=== PATIENT | female | born 1970 | race Native Hawaiian/Other Pacific Islander ===

== ENCOUNTER 2022-09-06 11:16 | Emergency (ER) | payer BC ==
[~2022-09-06] VITALS: Ht 167.6 cm; Wt 103.0 kg
[2022-09-06 11:19] VITALS: BP 122/81
--- NOTE | 2022-09-06 11:31 | NUR ---
Patient ambulated to bed 1 with steady gait.
--- NOTE | 2022-09-06 11:42 | NUR ---
PA Juárez evaluating patient at bedside.
[2022-09-06] MEDS ORDERED: NACL 0.9% 1,000 ML IV ONE (12:05)
--- NOTE | 2022-09-06 12:12 | NUR ---
IV started, blood work obtained. Handed to CPT at bedside.
[2022-09-06 12:24] LABS: BASOPHILS # (AUTO) 0.1 K/uL (0.00-0.22); EOSINOPHILS # (AUTO) 0.3 K/uL (0-0.4); EOSINOPHILS % (AUTO) 3.8 % (0.0-4.0); HEMATOCRIT 40.7 % (36-48); HEMOGLOBIN 13.9 g/dL (12.0-16.0); LYMPHOCYTES # (AUTO) 2.1 K/uL (2.5-16.5); LYMPHOCYTES % (AUTO) 27.8 % (20.5-51.1); MEAN CORPUSCULAR HEMOGLOBIN 30 pg (27-31); MEAN CORPUSCULAR HGB CONC 34 g/dL (33-37); MEAN CORPUSCULAR VOLUME 87.5 fL (80-94); MONOCYTES # (AUTO) 0.8 K/uL (0.8-1.0); MONOCYTES % (AUTO) 10.5 % (1.7-9.3); NEUTROPHILS # (AUTO) 4.4 K/uL (1.8-7.7); NEUTROPHILS % (AUTO) 56.9 % (42.2-75.2); PLATELET COUNT (AUTO) 366 K/uL (140-450); RED BLOOD CELL COUNT(AUTO) 4.65 MIL/uL (4.20-5.40); RED CELL DISTRIBUTION WIDTH 13.2 % (11.6-13.7); WHITE BLOOD COUNT (AUTO) 7.7 K/uL (4.8-10.8)
[2022-09-06 12:43] LABS: ANION GAP 10.3 (8-16); CARBON DIOXIDE 28.9 mmol/L (21-32); CREATININE 0.8 mg/dL (0.6-1.3); POTASSIUM 3.2 mmol/L (3.5-5.1)
[2022-09-06] MEDS ORDERED: NITR-141 PO ×2 (13:57→14:12)
[2022-09-06] MEDS ORDERED: IBUP-2213 PO ×2 (13:57→14:12)
[2022-09-06] MEDS ORDERED: CEPH-588 PO (13:57)
[2022-09-06 14:16] VITALS: BP 122/72
--- NOTE | 2022-09-06 14:39 | NUR ---
Patient discharged with v/s stable. Written and verbal after care instructions given and explained. Patient alert, oriented and verbalized understanding of instructions. Ambulatory with steady gait. All questions addressed prior to discharge. ID band removed. Patient advised to follow up with PMD. Rx of keflex, macrodantin given. Patient educated on indication of medication including possible reaction and side effects. Opportunity to ask questions provided and answered.
--- NOTE | 2022-09-08 14:59 | NUR ---
LATE ENTRY. RECEIVED POSITIVE URINE CULTURE. FORM GIVEN TO . TX APPROPRIATE. FORM PLACED IN BINDER.
== END 2022-09-06 14:16 | disposition home or self-care (01) ==
LOC: MED 11:16
DX: B34.9 Viral infection, unspecified (principal); N39.0 Urinary tract infection, site not specified; M79.7 Fibromyalgia
CPT/HCPCS: 36415; 71045; 80048; 81002; 81025; 85025; 87086; 96360; 99284; Q0092; J7030

== ENCOUNTER 2022-09-25 09:27 | Inpatient (IN) | payer BC ==
[~2022-09-25] VITALS: Ht 167.6 cm; Wt 107.5 kg
[~2022-09-25 09:27] MED LIST: IBUP-2213 PO; NITR-141 PO
[2022-09-25] MEDS ORDERED: diphenhydrAMINE 50 MG/ML VIAL IVP ONE (09:35)
[2022-09-25] MEDS ORDERED: methylPREDNISolone SS 125 MG/2 ML VIAL IVP ONE (09:35)
[2022-09-25] MEDS ORDERED: EPINEPHrine 1 MG/ML AMP IM ONE ×2 (09:35→12:40)
[2022-09-25] MEDS ORDERED: NACL 0.9% 1,000 ML IV ONE ×4 (09:35→12:40)
--- NOTE | 2022-09-25 09:35 | NUR ---
RECEIVED CALL FROM ER WINDOW AIR CONDITIONER INSTALLER, STATED PATIENT FELL/POSSIBLE SYNCOPE. FOUND PATIENT AWAKE SITTING UP ON GROUND, DENIES HEAD OR NECK INJURY. PATIENT ASSISTED INTO W/C AND TAKEN TO ED BED 9. ERMD AND PRIMARY NURSE MADE AWARE.
[2022-09-25 09:42] VITALS: BP 80/56
--- NOTE | 2022-09-25 09:50 | NUR ---
WHEELCHAIR ASSISTED TO ED C/O RASH ALL OVER BODY ACCOMPANIED BY THROAT TIGHTNESS AND DIFFICULTY BREATHING ONSET TODAY. PT STATES LAST FOOD INTAKE WAS YESTERDAY BUT DENIES ANY ALLERGIES TO FOOD. ON ROOM AIR, SATTING 96%. PMH: FIBROMYALGIA, HYPOTHYROIDISM NKA
--- NOTE | 2022-09-25 09:55 | NUR ---
IV ESTABLISHED TO LEFT AC WITH 20G. XR DONE AT BEDSIDE
--- NOTE | 2022-09-25 09:55 | NUR ---
BP 83/50 AT BEDSIDE. ERMD AWARE. WILL CARRY OUT ORDER
--- NOTE | 2022-09-25 10:00 | NUR ---
EKG DONE AT BEDSIDE BY DIRECTOR OF SPA AND GUEST EXPERIENCE
--- NOTE | 2022-09-25 10:01 | NUR ---
PT PLACED ON NC WITH 4L. O2 @ 97%
--- NOTE | 2022-09-25 10:07 | NUR ---
GENERAL SUPERVISOR AT BEDSIDE FOR BLOOD DRAW
--- NOTE | 2022-09-25 10:21 | NUR ---
SPOKE WITH PER PT'S REQUEST. PER , PT HAD ONE EPISODE OF SYNCOPAL EPISODE AT HOME IN THE RESTROOM AND A SECOND SYNCOPAL EPISODE IN THE TURRET PUNCH OPERATOR OF ED PRIOR TO TRIAGE. EMRD MADE AWARE
[2022-09-25 10:30] LABS: BASOPHILS % (AUTO) 0.2 % (0.0-2.0); EOSINOPHILS % (AUTO) 0.1 % (0.0-4.0); HEMATOCRIT 49.8 % (36-48); HEMOGLOBIN 16.6 g/dL (12.0-16.0); LYMPHOCYTES # (AUTO) 1.7 K/uL (2.5-16.5); LYMPHOCYTES % (AUTO) 15.2 % (20.5-51.1); MEAN CORPUSCULAR HEMOGLOBIN 30 pg (27-31); MEAN CORPUSCULAR HGB CONC 33 g/dL (33-37); MEAN CORPUSCULAR VOLUME 89.1 fL (80-94); MONOCYTES # (AUTO) 0.6 K/uL (0.8-1.0); MONOCYTES % (AUTO) 5.9 % (1.7-9.3); NEUTROPHILS # (AUTO) 8.6 K/uL (1.8-7.7); NEUTROPHILS % (AUTO) 78.6 % (42.2-75.2); PLATELET COUNT (AUTO) 316 K/uL (140-450); RED BLOOD CELL COUNT(AUTO) 5.59 MIL/uL (4.20-5.40); RED CELL DISTRIBUTION WIDTH 14.3 % (11.6-13.7); WHITE BLOOD COUNT (AUTO) 10.9 K/uL (4.8-10.8)
[2022-09-25 11:18] LABS: CARBON DIOXIDE 21.1 mmol/L (21-32); CREATININE 2.2 mg/dL (0.6-1.3)
[2022-09-25] MEDS ORDERED: DULO30EC PO (11:33)
[2022-09-25] MEDS ORDERED: LEVO0.3T5 PO (11:33)
[2022-09-25] MEDS ORDERED: GABA400C PO (11:33)
[2022-09-25 11:40] LABS: ANION GAP 17.1 (8-16); POTASSIUM 4.2 mmol/L (3.5-5.1)
--- NOTE | 2022-09-25 11:55 | NUR ---
PT AMBULATED TO RESTROOM FOR URINE COLLECTION
--- NOTE | 2022-09-25 12:05 | NUR ---
PT BACK IN BED. URINE COLLECTED
[2022-09-25 12:33] LABS: APPEARANCE,URINE SL CLOUDY (CLEAR); BILIRUBIN,URINE 1+ (NEGATIVE); BLOOD, URINE TRACE-I (NEGATIVE); COLOR,URINE DARK YELLOW (YELLOW); LEUKOCYTE ESTERASE ,URINE 1+ (NEGATIVE); NITRITE, URINE NEGATIVE (NEGATIVE); UGLUCOSE NEGATIVE (NEGATIVE)
[2022-09-25] MEDS ORDERED: EPINEPHrine 1 MG/ML AMP ONE (12:40)
[2022-09-25] MEDS ORDERED: LIDOCAINE MPF 1% 0 ML ONE (13:05)
--- NOTE | 2022-09-25 13:18 | NUR ---
DR JOHNSON AT BEDSIDE FOR CENTRAL LINE PLACEMENT
[2022-09-25] MEDS ORDERED: ACETAMINOPHEN 325 MG TAB PO PRN ×2 (13:25→16:10)
[2022-09-25] MEDS ORDERED: LORazepam 1 MG TAB PO PRN (13:25)
[2022-09-25] MEDS ORDERED: HYDROcodone/APAP 5/325 MG 1 TAB TAB PO PRN (13:25)
[2022-09-25] MEDS ORDERED: ONDANSETRON 4 MG/2 ML VIAL IVP PRN ×2 (13:25→16:10)
[2022-09-25 13:27] LABS: RBC,URINE 0-5 /HPF (0-5); TRICHOMONAS,URINE None Seen /HPF (None Seen); WBC,URINE 20-60 /HPF (0-5); YEAST,URINE None Seen /HPF (None Seen)
[2022-09-25 13:28] LABS: FINE GRANULAR CASTS,URINE 0-10 /LPF (None Seen)
[2022-09-25] MEDS ORDERED: EPINEPHrine 1 MG/ML AMP IM PRN (13:30)
--- NOTE | 2022-09-25 13:50 | NUR ---
Patient will be admitted to care of DR RIVERA. Admited to ICU. Will go to room 2. Belongings list completed. Report to EDITA CASANOVA.
--- NOTE | 2022-09-25 14:00 | NUR ---
RECEIVED BEDSIDE REPORT FROM ER STEPHON RN. PT A&O X4, AWAKE. ROOM AIR, O2 SATS 97%, BP 110/85, PULSE 76, RR 24, TEMP 98.4. SR ON MONITOR. SKIN INTACT. CONTINENT. LAST BM 09/22/22. IV TO LT AC 20G, SALINE LOCK. RT IJ TLC LOCKED. MILD WEAKNESS, BEDREST. RASH ALL OVER THE BODY, ITCHY. CALL LIGHT WITHIN REACH, WILL CONTINUE TO MONITOR.
--- NOTE | 2022-09-25 14:08 | NUR ---
Note avtarcliff in EDM - 09/25/22 at 1413 by [email or web address] PT REQUESTED TO LEAVE STATING HE HAS TO ATTEND A WEDDING. PT INSISTED SOME LAB RESULTS ARE PENDING AND ADVISED TO STAY, EXPLAINING RISK OF LEAVING BY BOTH PRIMARY RN AND ERMD. PT INSISTED HE NEEDS TO LEAVE. UPON LEAVING, PT ADVISED SOME LAB RESULTS CAME BACK CRITICAL AND NEEDS FURTHER EVALUATION. PT INSISTED HE NEEDS TO LEAVE FOR THE WEDDING AND STATED HE WILL COME BACK TOMORROW. PT LEFT AMBULATING IN STEADY GAIT AND STABLE VITALS. PT STATES NAUSEA AND VOMITING HAS STOPPED AND FEELS CONDITION IMPROVED.
[2022-09-25] MEDS: LACTATED RINGERS 1,000 ML IV SCH (14:12)
[2022-09-25 14:35] VITALS: BP 108/67
[2022-09-25] MEDS ORDERED: diphenhydrAMINE 50 MG/ML VIAL ONE (15:19)
--- NOTE | 2022-09-25 15:20 | NUR ---
PT REPORTED WORSENING RASH AND ITCHY, TIGHT THROAT. CALL DR RIVERA, WAIT FOR CALL BACK. OVERRIDE BENADRYL 25 MG PO, NOT GIVEN, WASTED. GIVEN BENADRYL IVP 25MG.
[2022-09-25 16:00] VITALS: BP 124/73
[2022-09-25] MEDS ORDERED: ACETAMINOPHEN 650 MG SUPP RC PRN (16:10)
--- NOTE | 2022-09-25 16:20 | NUR ---
DR THUY LINDSAY AT BEDSIDE. UPDATED PT INFORMATION. ORDERED MEDICATIONS AND DOWNGRADE PT TO TELE STATUS.
--- NOTE | 2022-09-25 19:25 | NUR ---
ENDORSED TO ARM MAKER VAN RN FOR CONTINUITY OF CARE.
--- NOTE | 2022-09-25 19:46 | NUR ---
PT A&O X4 AND ABLE TO MAKE NEEDS KNOWN. PT CAME IN FOR SOB AND RASH. VS WNR AT THIS TIME. PT ON ROOM AIR. NO S/SX OF SOB. PT ON CARDIAC DIET. ACTIVE BOWEL SOUNDS. RIJ TRIPLE LUMEN CATHETER. LEFT AC 20 GAUGE. LR RUNNING AT 80 ML/HR. SKIN IS INTACT. NO COMPLAINTS MADE AT THIS TIME.
[2022-09-25 20:00] VITALS: BP 113/61
[2022-09-25] MEDS: methylPREDNISolone SS 125 MG/2 ML VIAL IVP SCH (20:11)
[2022-09-25] MEDS: diphenhydrAMINE 50 MG/ML VIAL IVP PRN (20:15)
--- NOTE | 2022-09-25 23:16 | NUR ---
AT BEDSIDE. PT DENIES ASSISTANCE OR NEEDS AT THIS TIME.
[2022-09-26] VITALS: BP 118/69
[2022-09-26] MEDS: diphenhydrAMINE 50 MG/ML VIAL IVP PRN ×2 (00:22→05:44)
--- NOTE | 2022-09-26 01:00 | NUR ---
PT ABLE TO VOID INDEPENDENTLY. DENIES C/O PAIN.
[2022-09-26] MEDS: LACTATED RINGERS 1,000 ML IV SCH (02:33)
[2022-09-26 04:00] VITALS: BP 120/60
--- NOTE | 2022-09-26 05:30 | NUR ---
AM MEDS GIVEN. PRN BENADRYL GIVEN REQUESTED.
[2022-09-26] MEDS: methylPREDNISolone SS 125 MG/2 ML VIAL IVP SCH ×2 (05:32→12:53)
[2022-09-26 05:56] LABS: BASOPHILS % (AUTO) 0.1 % (0.0-2.0); LYMPHOCYTES # (AUTO) 1.8 K/uL (2.5-16.5); LYMPHOCYTES % (AUTO) 15.1 % (20.5-51.1); MEAN CORPUSCULAR HEMOGLOBIN 29 pg (27-31); MEAN CORPUSCULAR HGB CONC 33 g/dL (33-37); MEAN CORPUSCULAR VOLUME 87.9 fL (80-94); MONOCYTES # (AUTO) 0.6 K/uL (0.8-1.0); MONOCYTES % (AUTO) 4.9 % (1.7-9.3); NEUTROPHILS # (AUTO) 9.5 K/uL (1.8-7.7); NEUTROPHILS % (AUTO) 79.9 % (42.2-75.2); PLATELET COUNT (AUTO) 248 K/uL (140-450); RED BLOOD CELL COUNT(AUTO) 4.43 MIL/uL (4.20-5.40)
[2022-09-26] MEDS ORDERED: LEVOTHYROXINE 0.1 MG TAB PO SCH (06:30)
[2022-09-26 06:36] LABS: ALBUMIN 2.7 g/dL (3.4-5.0); CARBON DIOXIDE 22.4 mmol/L (21-32); CREATININE 0.8 mg/dL (0.6-1.3); MAGNESIUM 1.8 mg/dL (1.8-2.4); PHOSPHORUS 2.1 mg/dL (2.5-4.9); TOTAL BILIRUBIN 0.2 mg/dL (0.0-1.0)
--- NOTE | 2022-09-26 07:15 | NUR ---
RECEIVED BEDSIDE REPORT FROM CABLE FERRYBOAT OPERATOR VAN RN. PT A&O X4, AWAKE. ROOM AIR. SR ON MONITOR. SKIN INTACT. CONTINENT. LAST BM 09/22/22. IV TO LT AC 20G, SALINE LOCK. RT IJ TLC LOCKED. MILD WEAKNESS, BEDREST. RASH ALL OVER THE BODY, ITCHY. LAST BENADRYL 25MG IVP PRN Q4H GIVEN AT 0544. CALL LIGHT WITHIN REACH, WILL CONTINUE TO MONITOR.
--- NOTE | 2022-09-26 07:16 | NUR ---
ENDORSED TO AM SHIFT JOCELYNE MOYER.
[2022-09-26 07:25] LABS: ANION GAP 12.4 (8-16); POTASSIUM 3.8 mmol/L (3.5-5.1)
[2022-09-26 08:00] VITALS: BP 114/59
--- NOTE | 2022-09-26 08:20 | NUR ---
FAMILY/ AT BEDSIDE. UPDATED PT INFORMATION. ALL QUESTIONS ANSWERED.
[2022-09-26] MEDS ORDERED: DOCUSATE SODIUM 100 MG GELCAP PO SCH (09:00)
[2022-09-26] MEDS ORDERED: ENOXAPARIN 40 MG/0.4 ML SYR SUBQ SCH (09:00)
--- NOTE | 2022-09-26 09:39 | NUR ---
PATIENT HAS BEEN SCREENED AND CATEGORIZED MODERATE NUTRITION RISK. PATIENT WILL BE SEEN WITHIN 3-5 DAYS OF ADMISSION. 09/25/22-09/30/[address]
--- NOTE | 2022-09-26 11:07 | NUR ---
PT RELAXED, LYING IN THE BED. NO TIGHT THROAT, ITCHY, RASH REPORTED. VS STABLE.
[2022-09-26 12:00] VITALS: BP 106/75
[2022-09-26] MEDS ORDERED: EPIN1KIT31 IM (12:22)
[2022-09-26] MEDS ORDERED: DIPH25TA53 PO (12:22)
--- NOTE | 2022-09-26 12:25 | NUR ---
SEEN AND EXAMINED BY DR RIVERA. ORDER TO DISCHARGE PATIENT.
[2022-09-26 15:28] VITALS: BP 107/65
--- NOTE | 2022-09-26 16:55 | NUR ---
PT DISCHARGED FROM ICU VIA WHEELCHAIR TO FRONT OF MAIN ENTRANCE TO PRIVATE VEHICLE, WAITED BY THE VEHICLE. PT VS STABLE, NO S/S OF ACUTE RESPIRATORY DISTRESS.
== END 2022-09-26 16:30 | disposition home or self-care (01) | DRG 916 ==
LOC: MED 09:27 → MIC 13:29
PROVIDERS: ADMIT Hospitalist; ATTEND Hospitalist
PROC: 02HV33Z Insertion of Infusion Device into Superior Vena Cava, Percutaneous Approach (ICD-10-PCS; principal; 2022-09-25)
PROC: B548ZZA Ultrasonography of Superior Vena Cava, Guidance (ICD-10-PCS; 2022-09-25)
DX: T78.2XXA Anaphylactic shock, unspecified, initial encounter (principal); N17.9 Acute kidney failure, unspecified; E86.0 Dehydration; Z20.822 Contact with and (suspected) exposure to COVID-19; F32.A Depression, unspecified; F41.9 Anxiety disorder, unspecified; E03.9 Hypothyroidism, unspecified; M79.7 Fibromyalgia; R55 Syncope and collapse
CPT/HCPCS: 36415; 71045; 76770; 80048; 80053; 81001; 83735; 84100; 84443; 85025; 87081; 87086; 93005; 96361; 96374; 96375; 99285; J0171; J1200; J1650; J2001; J2930; Q0092; Q0163

== ENCOUNTER 2022-09-28 19:32 | Emergency (ER) | payer BC ==
[~2022-09-28] VITALS: Ht 167.6 cm; Wt 104.3 kg
[~2022-09-28 19:32] MED LIST changes: +DIPH25TA53 PO; +DULO30EC PO; +EPIN1KIT31 IM; +GABA400C PO; +LEVO0.3T5 PO; -NITR-141 PO
[2022-09-28 19:46] VITALS: BP 150/73
--- NOTE | 2022-09-28 19:46 | NUR ---
PT TAKEN TO BED 12
[2022-09-28] MEDS ORDERED: MORPHINE SULFATE 4 MG/ML SYR IVP ONE (20:20)
[2022-09-28] MEDS ORDERED: ONDANSETRON 4 MG/2 ML VIAL IVP ONE (20:20)
[2022-09-28 20:33] LABS: BASOPHILS % (AUTO) 0.2 % (0.0-2.0); EOSINOPHILS # (AUTO) 0.1 K/uL (0-0.4); EOSINOPHILS % (AUTO) 0.8 % (0.0-4.0); HEMOGLOBIN 13.7 g/dL (12.0-16.0); LYMPHOCYTES # (AUTO) 1.5 K/uL (2.5-16.5); LYMPHOCYTES % (AUTO) 13.8 % (20.5-51.1); MEAN CORPUSCULAR HEMOGLOBIN 30 pg (27-31); MEAN CORPUSCULAR HGB CONC 34 g/dL (33-37); MEAN CORPUSCULAR VOLUME 86.6 fL (80-94); MONOCYTES % (AUTO) 9.3 % (1.7-9.3); NEUTROPHILS # (AUTO) 8.3 K/uL (1.8-7.7); NEUTROPHILS % (AUTO) 75.9 % (42.2-75.2); PLATELET COUNT (AUTO) 240 K/uL (140-450); RED BLOOD CELL COUNT(AUTO) 4.62 MIL/uL (4.20-5.40); RED CELL DISTRIBUTION WIDTH 13.4 % (11.6-13.7); WHITE BLOOD COUNT (AUTO) 10.9 K/uL (4.8-10.8)
[2022-09-28 20:53] LABS: ALBUMIN 3.2 g/dL (3.4-5.0); ANION GAP 8.3 (8-16); CARBON DIOXIDE 31.9 mmol/L (21-32); CREATININE 0.8 mg/dL (0.6-1.3); POTASSIUM 4.2 mmol/L (3.5-5.1); TOTAL BILIRUBIN 0.4 mg/dL (0.0-1.0)
--- NOTE | 2022-09-28 21:10 | NUR ---
PT TAKEN TO CT
[2022-09-28 21:58] LABS: APPEARANCE,URINE CLEAR (CLEAR); BILIRUBIN,URINE NEGATIVE (NEGATIVE); BLOOD, URINE TRACE-I (NEGATIVE); COLOR,URINE YELLOW (YELLOW); LEUKOCYTE ESTERASE ,URINE NEGATIVE (NEGATIVE); NITRITE, URINE NEGATIVE (NEGATIVE); UGLUCOSE NEGATIVE (NEGATIVE)
[2022-09-28] MEDS ORDERED: KETOROLAC 15 MG/ML VIAL IVP ONE (22:05)
[2022-09-28 22:15] LABS: WBC,URINE 0-5 /HPF (0-5)
[2022-09-28] MEDS ORDERED: LEVO750T75 PO (22:43)
[2022-09-28 23:02] VITALS: BP 115/68
--- NOTE | 2022-09-28 23:03 | NUR ---
Patient discharged with v/s stable. Written and verbal after care instructions given and explained. Patient alert, oriented and verbalized understanding of instructions. Ambulatory with steady gait. All questions addressed prior to discharge. ID band removed. Patient advised to follow up with PMD. Rx of levofloxacin given. Patient educated on indication of medication including possible reaction and side effects. Opportunity to ask questions provided and answered.
== END 2022-09-28 23:03 | disposition home or self-care (01) ==
LOC: MED 19:32
DX: N12 Tubulo-interstitial nephritis, not specified as acute or chronic (principal); R11.0 Nausea; E03.9 Hypothyroidism, unspecified; Z90.49 Acquired absence of other specified parts of digestive tract; Z79.899 Other long term (current) drug therapy; Z90.710 Acquired absence of both cervix and uterus; Z98.890 Other specified postprocedural states
CPT/HCPCS: 36415; 74177; 80053; 81001; 81025; 83690; 85025; 87086; 96374; 96375; 99285; J1885; J2270; J2405; Q9967

== ENCOUNTER 2022-09-29 18:28 | Inpatient (IN) | payer BC ==
[~2022-09-29] VITALS: Ht 167.6 cm; Wt 104.3 kg
[~2022-09-29 18:28] MED LIST changes: +LEVO750T75 PO
[2022-09-29 18:40] VITALS: BP 87/63
[2022-09-29] MEDS ORDERED: methylPREDNISolone SS 125 MG/2 ML VIAL IVP ONE (18:50)
[2022-09-29] MEDS ORDERED: NACL 0.9% 1,000 ML IV ONE ×3 (18:50→20:55)
--- NOTE | 2022-09-29 19:00 | NUR ---
52/F BIBA FROM HOME C/O RASH AND SOB ONSET 10 MIN. PT STATES TAKING FIRST DOSE OF LEVOFLOXACINE TODAY PRIOR TO ONSET OF S/SX. PT STATES SELF-ADMINISTERING EPI-PEN AND 25MG BENADRYL IV ADMINISTERED BY EMS MACHINE TANK OPERATOR. PT WAS DC LAST NIGHT FOR PYELONEPHRITIS DX. PT WAS DC 09/26/22 FOR ANAPHYLACTIC SHOCK. ON ROOM AIR SATTING 96%, APPEARS HYPOTENSIVE AT BEDSIDE AND ERMD AWARE. AAO4, IV ESTABLISHED BY EMS MACHINE TANK OPERATOR TO LEFT AC WITH 20G. PMH: HYPOTHYROID
[2022-09-29] MEDS ORDERED: NACL 0.9% 2,000 ML IV ONE (19:05)
[2022-09-29] MEDS ORDERED: PIPERACILLIN/TAZOBACTAM 3.375 GM in DEXTROSE 5% 50 ML IV ONE (19:05)
--- NOTE | 2022-09-29 19:06 | NUR ---
PT CURRENTLY DENIES ANY SOB AT THIS TIME. RASH NOTED TO ABDOMEN.
[2022-09-29] MEDS ORDERED: PIPERACILLIN/TAZOBACTAM 3.375 GM VIAL IV ONE (19:08)
--- NOTE | 2022-09-29 19:15 | NUR ---
XR AT BEDSIDE
[2022-09-29 19:20] LABS: HEMATOCRIT 49.1 % (36-48); HEMOGLOBIN 16.3 g/dL (12.0-16.0); MEAN CORPUSCULAR HEMOGLOBIN 29 pg (27-31); MEAN CORPUSCULAR HGB CONC 33 g/dL (33-37); MEAN CORPUSCULAR VOLUME 88.5 fL (80-94); PLATELET COUNT (AUTO) 239 K/uL (140-450); RED BLOOD CELL COUNT(AUTO) 5.55 MIL/uL (4.20-5.40); RED CELL DISTRIBUTION WIDTH 14.1 % (11.6-13.7); WHITE BLOOD COUNT (AUTO) 21.4 K/uL (4.8-10.8)
[2022-09-29 19:33] LABS: ANION GAP 9.1 (8-16); CARBON DIOXIDE 29.6 mmol/L (21-32); CREATININE 1.4 mg/dL (0.6-1.3); POTASSIUM 3.7 mmol/L (3.5-5.1)
[2022-09-29] MEDS ORDERED: EPINEPHrine 1 MG/ML AMP IM ONE ×2 (19:35→21:35)
--- NOTE | 2022-09-29 19:37 | NUR ---
HANDOFF REPORT GIVEN TO SHOAIB CASANOVA.
[2022-09-29 19:41] LABS: LYMPHOCYTES % (MANUAL) 4 % (20-46); MONOCYTES % (MANUAL) 3 % (5-12)
--- NOTE | 2022-09-29 20:15 | NUR ---
SON CHRYSTAL VANCE CALLED REQUESTING UPDATE AN ADMISSION [phone]
[2022-09-29] MEDS ORDERED: NOREPINEPHRINE 4 MG in DEXTROSE 5% 250 ML IV ONE ×2 (20:20→21:00)
[2022-09-29] MEDS ORDERED: NOREPINEPHRINE 4 MG/4 ML VIAL IV ONE (20:30)
[2022-09-29] MEDS ORDERED: EPINEPHrine 1 MG/ML AMP IM PRN (21:00)
--- NOTE | 2022-09-29 21:04 | NUR ---
RAPID COVID SPECIMEN TAKEN TO LAB
[2022-09-29] MEDS ORDERED: POTASSIUM CHLORIDE 10 MEQ TABER PO PRN (21:05)
[2022-09-29] MEDS ORDERED: ZOLPIDEM 10 MG TAB PO PRN (21:05)
[2022-09-29] MEDS ORDERED: ACETAMINOPHEN 325 MG TAB PO PRN (21:05)
[2022-09-29] MEDS ORDERED: DOCUSATE SODIUM 100 MG GELCAP PO PRN (21:05)
[2022-09-29] MEDS ORDERED: ONDANSETRON 4 MG/2 ML VIAL IVP PRN (21:05)
[2022-09-29] MEDS ORDERED: LORazepam 2 MG/ML VIAL IVP PRN (21:05)
[2022-09-29] MEDS ORDERED: MAG SULF 2000 MG/WATER PREMIX 50 ML IV PRN (21:05)
[2022-09-29] MEDS: NACL 0.9% 1,000 ML IV SCH (21:52)
[2022-09-29 22:12] LABS: APPEARANCE,URINE CLEAR (CLEAR); BILIRUBIN,URINE NEGATIVE (NEGATIVE); BLOOD, URINE NEGATIVE (NEGATIVE); COLOR,URINE YELLOW (YELLOW); LEUKOCYTE ESTERASE ,URINE NEGATIVE (NEGATIVE); NITRITE, URINE NEGATIVE (NEGATIVE); UGLUCOSE NEGATIVE (NEGATIVE)
[2022-09-29 22:17] VITALS: BP 90/55
[2022-09-29 22:30] VITALS: BP 90/55
[2022-09-29 22:45] VITALS: BP 122/71
[2022-09-29 23:00] VITALS: BP 114/63
[2022-09-29] MEDS ORDERED: PNEUMOCOCCAL VACCINE 23 MCG/0.5 ML VIAL IMVAC SCH (23:35)
[2022-09-30] VITALS (15 sets, daily range): BP systolic 97–137; BP diastolic 52–87
[2022-09-30] MEDS: NACL 0.9% 1,000 ML IV SCH ×2 (01:25→14:51)
[2022-09-30] MEDS ORDERED: PIPERACILLIN/TAZOBACTAM 3.375 GM VIAL IV ONE ×2 (01:30→06:30)
[2022-09-30] MEDS: PIPERACILLIN/TAZOBACTAM 3.375 GM in DEXTROSE 5% 50 ML IV SCH ×4 (01:38→17:08)
[2022-09-30] MEDS ORDERED: NOREPINEPHRINE 4 MG/4 ML VIAL IV ONE (04:37)
[2022-09-30] MEDS ORDERED: diphenhydrAMINE 50 MG/ML VIAL ONE (04:49)
[2022-09-30] MEDS ORDERED: EPINEPHrine 1 MG/ML AMP IM PRN (04:50)
[2022-09-30] MEDS ORDERED: HYDROCORTISONE NA SUCC 100 MG/2 ML VIAL IV SCH (05:00)
[2022-09-30] MEDS ORDERED: methylPREDNISolone SS 40 MG in WATER STERILE 1 ML IV SCH (05:00)
[2022-09-30 06:24] LABS: BASOPHILS % (AUTO) 0.1 % (0.0-2.0); EOSINOPHILS % (AUTO) 0.1 % (0.0-4.0); HEMOGLOBIN 16.5 g/dL (12.0-16.0); LYMPHOCYTES # (AUTO) 1.9 K/uL (2.5-16.5); LYMPHOCYTES % (AUTO) 13.3 % (20.5-51.1); MEAN CORPUSCULAR HEMOGLOBIN 29 pg (27-31); MEAN CORPUSCULAR HGB CONC 34 g/dL (33-37); MEAN CORPUSCULAR VOLUME 87.4 fL (80-94); MONOCYTES # (AUTO) 0.4 K/uL (0.8-1.0); MONOCYTES % (AUTO) 2.6 % (1.7-9.3); NEUTROPHILS # (AUTO) 11.7 K/uL (1.8-7.7); NEUTROPHILS % (AUTO) 83.9 % (42.2-75.2); PLATELET COUNT (AUTO) 195 K/uL (140-450); RED BLOOD CELL COUNT(AUTO) 5.61 MIL/uL (4.20-5.40); RED CELL DISTRIBUTION WIDTH 14.1 % (11.6-13.7)
[2022-09-30] MEDS: LEVOTHYROXINE 0.1 MG TAB PO SCH (06:25)
[2022-09-30 06:42] LABS: ANION GAP 12.9 (8-16); CARBON DIOXIDE 21.3 mmol/L (21-32); POTASSIUM 3.2 mmol/L (3.5-5.1)
--- NOTE | 2022-09-30 08:10 | NUR ---
RECEIVED BEDSIDE REPORT FROM CEMENT PATCHER VAL CASANOVA. PT ALERT AND ORIENTED X4. AWAKE, BEDREST. ROOM AIR, SR ON MONITOR. NO S/S OF ACUTE RESPIRATORY DISTRESS. CONTINENT, USING BEDSIDE COMMODE. IV TO RT AC 20G , RUNNING LEVO @ 8MCG/MIN. LT AC 20G, RUNNING NS @ 100MLS/HR. CALL LIGHT WITHIN REACH, WILL CONTINUE TO MONITOR. Addendum: 09/30/22 at 0818 by Alina Jackson RN IV TO LT AC 20G , RUNNING LEVO @ 8MCG/MIN. RT AC 20G, RUNNING NS @ 100MLS/HR.
--- NOTE | 2022-09-30 08:16 | NUR ---
DR ДМИТРИЙ LINDSAY AT BEDSIDE. NO NEW ORDER.
[2022-09-30] MEDS: GABAPENTIN 100 MG CAP PO SCH ×3 (08:31→17:08)
[2022-09-30] MEDS: diphenhydrAMINE 50 MG/ML VIAL IVP PRN ×2 (09:00→14:36)
[2022-09-30] MEDS ORDERED: NOREPINEPHRINE 4 MG in DEXTROSE 5% 250 ML IV PRN (09:45)
--- NOTE | 2022-09-30 10:12 | NUR ---
SEEN AND EXAMINED BY DR MCCRARY. ORDERED PICC LINE.
--- NOTE | 2022-09-30 10:17 | NUR ---
PATIENT HAS BEEN SCREENED AND CATEGORIZED HIGH NUTRITION RISK. PATIENT WILL BE SEEN WITHIN 1-2 DAYS OF ADMISSION. 09/29/22-10/01/[address]
[2022-09-30] MEDS: methylPREDNISolone SS 40 MG/ML VIAL IVP SCH ×2 (12:25→20:48)
--- NOTE | 2022-09-30 12:55 | NUR ---
PICC LINE INSERTED AT BEDSIDE BY PICC LIEN NURSE. PT TOLERATED WELL. CXR DID TO CONFIRM THE PLACEMENT.
--- NOTE | 2022-09-30 13:00 | NUR ---
DC PLANNING ATTEMPTED TO MEET WITH PT AT BEDSIDE, HOWEVER, PT BEING SEEN BY PROVIDER. SW TO FOLLOW.
--- NOTE | 2022-09-30 13:03 | NUR ---
DC PLANNIN YRS OLD FEMALE PATIENT WAS ADMITTED FROM HOME WITH A DX OF ANAPHYLACTIC SHOCK. PATIENT HAS A HX OF HYPOTHYROIDISM FIBROMYALGIA. ADMITTED TO ICU FOR EPI AND LEVOPHED DRIP. IV ABX ZOSYN AND SOLU-MEDROL IV. CONSULTED WITH PULMO AND CARDIO. DC PLAN PER PATIENT RESPOND TO THE TREATMENT. CM TO FOLLOW
--- NOTE | 2022-09-30 13:55 | NUR ---
PT BP 129/69, PULSE 75, O2 SATS 98%, RR 24, TEMP 98.0. STOPPED LEVO.
--- NOTE | 2022-09-30 14:16 | NUR ---
09/30/22 RD INITIAL ASSESSMENT COMPLETED PLEASE REFER TO NUTRITION ASSESSMENT UNDER CARE ACTIVITY FOR ESTIMATED NUTRITIONAL NEEDS. 1. RECOMMEND [id number] TOLERATED 2. MONITOR BLOOD GLUCOSE. 3. RD TO FOLLOW-UP 3-5 DAYS, MODERATE RISK REVIEWED BY ARIEL TOM RD
--- NOTE | 2022-09-30 14:35 | NUR ---
PT REPORTED WORSENING ITCHY AND HAS FEELING THAT RASH WILL FLARE UP. LAST BENADRYL 25MG IVP PRN Q12H GIVEN AT 09[address]. NOTIF[address] CHOE, IT IS OK TO GIVE ANOTHER ONE.
--- NOTE | 2022-09-30 15:10 | NUR ---
PULSE 62, BP 116/67, O2 SATS 95%, RR 26. VS STABLE, NO S/S OF ACUTE RESPIRATORY DISTRESS.
--- NOTE | 2022-09-30 17:40 | NUR ---
SEEN AND EXAMINED BY DR POTTS. UPDATED PT INFORMATION.
--- NOTE | 2022-09-30 19:17 | NUR ---
ENDORSED TO FURNACE SETTER BAO RN FOR CONTINUITY OF CARE.
--- NOTE | 2022-09-30 19:30 | NUR ---
RECEIVED PATIENT LYING IN BED ALERT ORIENTED, NO C/O PAIN, V/S STABLE NO DISTRESS NOTED
[2022-10-01] VITALS (11 sets, daily range): BP systolic 97–129; BP diastolic 55–77
[2022-10-01] MEDS: PIPERACILLIN/TAZOBACTAM 3.375 GM in DEXTROSE 5% 50 ML IV SCH ×5 (00:44→23:28)
[2022-10-01] MEDS: NACL 0.9% 1,000 ML IV SCH ×3 (02:22→23:00)
[2022-10-01] MEDS: methylPREDNISolone SS 40 MG/ML VIAL IVP SCH ×3 (04:57→21:27)
[2022-10-01] MEDS: diphenhydrAMINE 50 MG/ML VIAL IVP PRN (04:57)
[2022-10-01 05:56] LABS: BASOPHILS % (AUTO) 0.1 % (0.0-2.0); HEMATOCRIT 36.8 % (36-48); HEMOGLOBIN 12.1 g/dL (12.0-16.0); LYMPHOCYTES # (AUTO) 2.3 K/uL (2.5-16.5); MEAN CORPUSCULAR HEMOGLOBIN 29 pg (27-31); MEAN CORPUSCULAR HGB CONC 33 g/dL (33-37); MEAN CORPUSCULAR VOLUME 86.9 fL (80-94); MONOCYTES # (AUTO) 0.9 K/uL (0.8-1.0); MONOCYTES % (AUTO) 6.7 % (1.7-9.3); NEUTROPHILS # (AUTO) 10.5 K/uL (1.8-7.7); NEUTROPHILS % (AUTO) 76.2 % (42.2-75.2); PLATELET COUNT (AUTO) 167 K/uL (140-450); RED BLOOD CELL COUNT(AUTO) 4.24 MIL/uL (4.20-5.40); RED CELL DISTRIBUTION WIDTH 14.4 % (11.6-13.7); WHITE BLOOD COUNT (AUTO) 13.8 K/uL (4.8-10.8)
[2022-10-01 06:06] LABS: ANION GAP 7.8 (8-16); CARBON DIOXIDE 25.9 mmol/L (21-32); CREATININE 0.8 mg/dL (0.6-1.3); POTASSIUM 3.7 mmol/L (3.5-5.1)
[2022-10-01] MEDS: LEVOTHYROXINE 0.1 MG TAB PO SCH (06:42)
--- NOTE | 2022-10-01 07:19 | NUR ---
ENDORSED PATIENT TO JACKIE CASANOVA
--- NOTE | 2022-10-01 07:30 | NUR ---
RECEIVED REPORT FROM JOCELYNE GORE FOR CONTINUITY OF CARE. PATIENT IN BED, NO S/S OF ACUTE DISTRESS. PATIENT WITH NO COMPLAINTS OF PAIN AT THIS TIME. ALERT AND ORIENTED X 4. PATIENT PROVIDED WITH BREAKFAST TRAY AND TOLERATING IT WELL WITH GOOD APPETITE. PATIENT'S LUNG SOUNDS ARE CLEAR, AIRWAY IS PATENT, ABDOMEN IS SOFT AND NON-TENDER. EYES ARE PERRL AND SKINS ARE INTACT. WILL CONTINUE TO MONITOR
[2022-10-01] MEDS: GABAPENTIN 100 MG CAP PO SCH ×3 (09:16→17:19)
--- NOTE | 2022-10-01 10:00 | NUR ---
ASSISTED PATIENT TO COMMODE, PATIENT WITH NO S/S OF ACUTE DISTRESS, WILL CONTINUE TO MONITOR
--- NOTE | 2022-10-01 12:00 | NUR ---
PATIENT TOLERATED LUNCH TRAY WELL. NO S/S OF ACUTE DISTRESS NOTED. BED SET TO LOW POSITION, WILL CONTINUE TO MONITOR.
--- NOTE | 2022-10-01 14:00 | NUR ---
PATIENT IN BED, NO S/S OF ACUTE DISTRESS. ASLEEP COMFORTABLY WITH FAMILY AT THE BEDSIDE
--- NOTE | 2022-10-01 15:01 | NUR ---
DC PLANNING MET WITH PT AT BEDSIDE TO COMPLETE ASSESSMENT. PATIENT RESIDES IN A SINGLE STORY HOME WITH FAMILY AT THE ADDRESS LISTED ON FILE. PATIENT IDENTIFIES CHRYSTAL VANCE,,[phone],CHICHI ZUNIGA,SISTER,[phone] AND COURTNEY VAUGHAN, AUNT,[phone] EMERGENCY CONTACTS. PATIENT REPORTS THAT SHE WOULD LIKE ALL PERSONS ON EMERGENCY CONTACT TO BE UPDATED ON HEALTH IF THEY CALL. PATIENT REPORTS MEETING WITH PCP, REGULARLY, LAST VISIT; 3 MONTHS AGO. PT REPORTS MEDICATION COMPLIANCE AND DENIES BARRIERS IN ACCESS TO MEDICATIONS. PATIENT REPORTS RECEIVING MEDICATION FROM [facility] ON [address] IN [place], WHEN NEEDED. PATIENT REPORTS BEING INDEPENDENT IN ALL ACTIVITIES AND DENIES USE OF DME. PT DENIES MH/SA HX. PATIENT DENIES HX OF HH, SNF PLACEMENT, DIABETES, DIALYSIS TX. PT REPORTS DC PLAN IS TO RETURN HOME WITH FAMILY PROVIDING TRANSPORTATION WHEN MEDICALLY STABLE. SW INQUIRED ON RESOURCES NEEDED, PT DECLINED. Addendum: 10/01/22 at 1504 by Arlen Alcaraz SS Amended: Links added.
--- NOTE | 2022-10-01 16:11 | NUR ---
PATIENT SITTING UP IN BED, SPEAKING WITH FAMILY ON THE PHONE. NO S/S OF ACUTE DISTRESS AT THIS TIME. WILL CONTINUE TO MONITOR
--- NOTE | 2022-10-01 17:47 | NUR ---
PATIENT MOVED TO 120B TELE UNIT. MADE COMFORTABLE IN BED. PATIENT ORIENTED TO ROOM AND CALL LIGHT. EDUCATED ON FALL PRECAUTIONS. NO S/S OF ACUTE DISTRESS AT THIS TIME. WILL CONTINUE TO MONITOR
--- NOTE | 2022-10-01 19:07 | NUR ---
PATIENT TOLERATED DINNER WELL. REPORT GIVEN TO JOCELYNE VALENTINE FOR CONTINUITY OF CARE.
--- NOTE | 2022-10-01 19:10 | NUR ---
RECEIVED REPORT FROM AM NURSE FOR CONTINUITY OF CARE.PT IS AWAKE STABLE IN BED. A&OX4. DENIES PAIN. ON RM AIR/O2 WITH NO ACUTE DISTRESS. RR EVEN AND UNLABORED WITH EQUAL CHEST RISE. GI INTACT .ATE 100% OF REGULAR DIET DINNER. PT'S SKIN IS INTACT BUT HAS RASHES ALL OVER BODY. PT IS AMBULATORY AND CONTINENT. ALL SAFETY MEASURES IN PLACE. BED IN LOW AND LOCKED POSITION. CALL LIGHT WITHIN REACH. WILL CONTINUE TO MONITOR.
--- NOTE | 2022-10-01 23:00 | NUR ---
FREQ ROUNDS. CHECKED PT IS STABLE IN BED. AT IS AMBULATORY AND CALLS TO HAVE IVF DISCONNECTED WHEN SHE AMBULATES TO THE BATHROOM. ALL SAFETY MEASURES IN PLACE. DENIES PAIN OR ITCHING . CALL LIGHT WITHIN REACH.
[2022-10-02] VITALS (7 sets, daily range): BP systolic 111–157; BP diastolic 63–89
[2022-10-02] MEDS: NACL 0.9% 1,000 ML IV SCH ×2 (03:12→16:43)
[2022-10-02] MEDS: methylPREDNISolone SS 40 MG/ML VIAL IVP SCH ×3 (04:05→21:59)
[2022-10-02] MEDS: PIPERACILLIN/TAZOBACTAM 3.375 GM in DEXTROSE 5% 50 ML IV SCH ×4 (05:36→23:44)
--- NOTE | 2022-10-02 06:00 | NUR ---
NISA AM LABS FROM [facility] PICC LINE. BOTH PORTS FLUSH EASILY. PT REMAINS ON IVF HYDRATION NS@100CC/HR. AND ZOSYN IVPB ABX.
[2022-10-02] MEDS: LEVOTHYROXINE 0.1 MG TAB PO SCH (06:25)
[2022-10-02 07:25] LABS: ANION GAP 8.7 (8-16); CARBON DIOXIDE 24.3 mmol/L (21-32); CREATININE 0.8 mg/dL (0.6-1.3)
[2022-10-02 07:33] LABS: EOSINOPHILS % (AUTO) 0.1 % (0.0-4.0); HEMATOCRIT 35.8 % (36-48); HEMOGLOBIN 11.7 g/dL (12.0-16.0); LYMPHOCYTES # (AUTO) 2.3 K/uL (2.5-16.5); LYMPHOCYTES % (AUTO) 21.1 % (20.5-51.1); MEAN CORPUSCULAR HEMOGLOBIN 29 pg (27-31); MEAN CORPUSCULAR HGB CONC 33 g/dL (33-37); MEAN CORPUSCULAR VOLUME 88.2 fL (80-94); MONOCYTES # (AUTO) 0.6 K/uL (0.8-1.0); MONOCYTES % (AUTO) 5.2 % (1.7-9.3); NEUTROPHILS # (AUTO) 8.1 K/uL (1.8-7.7); NEUTROPHILS % (AUTO) 73.6 % (42.2-75.2); PLATELET COUNT (AUTO) 165 K/uL (140-450); RED BLOOD CELL COUNT(AUTO) 4.06 MIL/uL (4.20-5.40); RED CELL DISTRIBUTION WIDTH 14.5 % (11.6-13.7)
--- NOTE | 2022-10-02 07:40 | NUR ---
ENDORSED PATIENT TO [facility] FOR CONTINUITY OF CARE. PT IS STABLE. ALL NEEDS MET THROUGHOUT THE SHIFT.
--- NOTE | 2022-10-02 07:41 | NUR ---
RECEIVED REPORT FROM SECTION CUTTER NURSE FOR CONTINUITY OF CARE. PT AWAKE IN BED. A&O4, ABLE TO MAKE NEEDS KNOWN. RESPIRATIONS EVEN AND UNLABORED ON RA. PT ON UI LEAD DEVELOPER. IV SITE LEFT AC 20G, SL AND CAROL PICC 2X LUMEN INFUSING IVF. CALL LIGHT WITHIN REACH. SAFETY PRECAUTIONS IN PLACE.
--- NOTE | 2022-10-02 08:20 | NUR ---
DR. CHOE CAME AND SPOKE TO PATIENT AT BEDSIDE. PT. C/O CHEST PAIN 05/30. NO ACUTE DISTRESS NOTED. DR. CHOE MADE AWARE OF HR OF [address] CHOE STATED "DR. POTTS ALREADY AWARE OF CARDIAC STATUS OF THE PATIENT." DR. CHOE ORDERED MORPHINE 2 MG IVP Q6 PRN FOR SEVERE PAIN AND AWARE OF PT. ALLERGY TO CODEINE. DR POTTS, WAS INFORMED.
[2022-10-02] MEDS ORDERED: MORPHINE SULFATE 2 MG/ML SYR IVP PRN (08:30)
[2022-10-02] MEDS: GABAPENTIN 100 MG CAP PO SCH ×3 (08:55→16:41)
--- NOTE | 2022-10-02 10:44 | NUR ---
PT COMPLAINED OF SALTER 3/10. PRN PAIN MED ADMINISTERED.
--- NOTE | 2022-10-02 13:02 | NUR ---
PT STILL HAS CHEST PAIN WHEN BREATHING IN. HR AT 40'S. RN AWARE AND CAN'T GIVE PRN IVP PAIN MED. DR CHOE WAS INFORMED.
--- NOTE | 2022-10-02 13:22 | NUR ---
SCHEDULED PO MED ADMINISTERED. IV MED ADMINISTERED BY JOCELYNE DAVIES. NO ADVERSE REACTION NOTED.
--- NOTE | 2022-10-02 16:38 | NUR ---
PT CHECKED AND SEEN BY DR POTTS.
[2022-10-02] MEDS: KETOROLAC 15 MG/ML VIAL IVP PRN ×2 (16:45→22:51)
--- NOTE | 2022-10-02 17:03 | NUR ---
SCHEDULED IV ABX ADMINISTERED BY JOCELYNE DAVIES. NO ADVERSE REACTION NOTED.
--- NOTE | 2022-10-02 19:07 | NUR ---
ENDORSED PT TO PEDIATRIC DERMATOLOGIST NURSE FOR CONTINUITY OF CARE. ALL NEEDS MET THROUGHOUT SHIFT. PT IS STABLE.
[2022-10-03 05:08] VITALS: BP 154/78
[2022-10-03] MEDS: NACL 0.9% 1,000 ML IV SCH ×2 (05:29→14:41)
[2022-10-03] MEDS: methylPREDNISolone SS 40 MG/ML VIAL IVP SCH ×3 (05:30→21:21)
[2022-10-03] MEDS: KETOROLAC 15 MG/ML VIAL IVP PRN (05:30)
[2022-10-03 06:26] LABS: BASOPHILS % (AUTO) 0.1 % (0.0-2.0); HEMATOCRIT 36.9 % (36-48); HEMOGLOBIN 12.1 g/dL (12.0-16.0); LYMPHOCYTES # (AUTO) 3.1 K/uL (2.5-16.5); LYMPHOCYTES % (AUTO) 22.7 % (20.5-51.1); MEAN CORPUSCULAR HEMOGLOBIN 29 pg (27-31); MEAN CORPUSCULAR HGB CONC 33 g/dL (33-37); MEAN CORPUSCULAR VOLUME 87.7 fL (80-94); MONOCYTES # (AUTO) 0.7 K/uL (0.8-1.0); MONOCYTES % (AUTO) 5.2 % (1.7-9.3); NEUTROPHILS # (AUTO) 9.7 K/uL (1.8-7.7); PLATELET COUNT (AUTO) 176 K/uL (140-450); RED BLOOD CELL COUNT(AUTO) 4.21 MIL/uL (4.20-5.40); RED CELL DISTRIBUTION WIDTH 14.5 % (11.6-13.7); WHITE BLOOD COUNT (AUTO) 13.5 K/uL (4.8-10.8)
[2022-10-03 06:30] LABS: ANION GAP 9.2 (8-16); CARBON DIOXIDE 25.7 mmol/L (21-32); CREATININE 0.8 mg/dL (0.6-1.3); POTASSIUM 3.9 mmol/L (3.5-5.1)
[2022-10-03] MEDS: PIPERACILLIN/TAZOBACTAM 3.375 GM in DEXTROSE 5% 50 ML IV SCH ×3 (06:38→18:04)
[2022-10-03] MEDS: LEVOTHYROXINE 0.1 MG TAB PO SCH (06:38)
[2022-10-03 08:15] VITALS: BP 154/78
[2022-10-03] MEDS: GABAPENTIN 100 MG CAP PO SCH ×3 (08:56→17:10)
[2022-10-03 12:00] VITALS: BP 154/78
[2022-10-03 16:00] VITALS: BP 154/78
--- NOTE | 2022-10-03 17:32 | NUR ---
RD FOLLOWED UP WITH JOCELYNE LYNCH REGARDING CHANGING PT'S DIET TO CCHO [address] STUDENT 09/30/22. RN AGREED TO UPDATE PT'S DIET.
--- NOTE | 2022-10-03 19:42 | NUR ---
PER JOCELYNE ROWLEY DR. AWARE THAT THE PT. IS SB , HR 40'S , BUT NO FURTHER ORDER FROM DR. POTTS .
[2022-10-03 20:00] VITALS: BP 139/65
--- NOTE | 2022-10-03 22:14 | NUR ---
HR DROPPED TO 31 , RE VISIT PT NO S/SX OF ACUTE DISTRESS NOTED , PT. NO COMPLAIN MADE , BP 139/76 , RR 18 , O2 SAT 97 % , - WILL REFER TO DR. POTTS . Addendum: 10/04/22 at 0227 by Emelia Oropeza RN [place] [id number] DR[address] POTTS RESPONDED . PER DR. POTTS NO FURTHER ORDERS .
[2022-10-04] VITALS: BP 128/80
--- NOTE | 2022-10-04 | NUR ---
SLEEPING , AROUSABLE , BY SOUNDS AND TOUCH , NO S/SX OF ACUTE DISTRESS NOTED AT THIS TIME , CALL LIGHT WITHIN REACH .
[2022-10-04] MEDS: PIPERACILLIN/TAZOBACTAM 3.375 GM in DEXTROSE 5% 50 ML IV SCH ×3 (00:10→12:48)
[2022-10-04] MEDS: NACL 0.9% 1,000 ML IV SCH ×2 (01:20→11:00)
--- NOTE | 2022-10-04 02:00 | NUR ---
SLEEPING , CHEST RISE AND FALL EQUALLY , CALL LIGHT WITHIN REACH .
[2022-10-04 04:00] VITALS: BP 144/74
--- NOTE | 2022-10-04 04:00 | NUR ---
ROUNDS , NO S/SX OF ACUTE DISTRESS NOTED AT THIS TIME , ON TELE MONITOR .
[2022-10-04] MEDS: methylPREDNISolone SS 40 MG/ML VIAL IVP SCH ×2 (05:02→12:55)
[2022-10-04 05:59] LABS: BASOPHILS % (AUTO) 0.1 % (0.0-2.0); EOSINOPHILS % (AUTO) 0.1 % (0.0-4.0); HEMATOCRIT 37.5 % (36-48); HEMOGLOBIN 12.1 g/dL (12.0-16.0); LYMPHOCYTES # (AUTO) 2.9 K/uL (2.5-16.5); LYMPHOCYTES % (AUTO) 14.1 % (20.5-51.1); MEAN CORPUSCULAR HEMOGLOBIN 28 pg (27-31); MEAN CORPUSCULAR HGB CONC 32 g/dL (33-37); MONOCYTES # (AUTO) 0.8 K/uL (0.8-1.0); MONOCYTES % (AUTO) 3.9 % (1.7-9.3); NEUTROPHILS % (AUTO) 81.8 % (42.2-75.2); PLATELET COUNT (AUTO) 209 K/uL (140-450); RED BLOOD CELL COUNT(AUTO) 4.26 MIL/uL (4.20-5.40); RED CELL DISTRIBUTION WIDTH 14.5 % (11.6-13.7); WHITE BLOOD COUNT (AUTO) 20.7 K/uL (4.8-10.8)
--- NOTE | 2022-10-04 06:00 | NUR ---
NO COMPLAIN MADE , CALL LIGHT WITHIN REACH .
[2022-10-04] MEDS: LEVOTHYROXINE 0.1 MG TAB PO SCH (06:39)
[2022-10-04 07:05] LABS: ANION GAP 10.5 (8-16); CARBON DIOXIDE 27.2 mmol/L (21-32); CREATININE 0.7 mg/dL (0.6-1.3); POTASSIUM 3.7 mmol/L (3.5-5.1)
--- NOTE | 2022-10-04 07:36 | NUR ---
ENDORSED PT FOR CONT. OF CARE .
[2022-10-04] MEDS: GABAPENTIN 100 MG CAP PO SCH ×2 (09:57→12:55)
[2022-10-04] MEDS: KETOROLAC 15 MG/ML VIAL IVP PRN (09:59)
[2022-10-04] MEDS ORDERED: [UNRECOGNIZED DRUG - CODE] IM (13:11)
[2022-10-04] MEDS ORDERED: EPIN1KIT31 IM (13:11)
[2022-10-04] MEDS ORDERED: PRED10TA5 PO (13:11)
[2022-10-04 14:45] VITALS: BP 144/74
--- NOTE | 2022-10-04 15:40 | NUR ---
PATIENT DISCHARGED HOME. PICC LINE REMOVED WITH TIP INTACT. NO BLEEDING NOTED. INSTRUCTIONS GIVEN. PATIENT VERBALIZED UNDERSTANDING. STABLE UPON DISCHARGE.
== END 2022-10-04 15:40 | disposition home or self-care (01) | DRG 871 ==
LOC: MED 18:28 → MIC 20:47 → MTU 10-01 17:03
PROVIDERS: ADMIT Family Medicine; ATTEND Family Medicine
PROC: 02HV33Z Insertion of Infusion Device into Superior Vena Cava, Percutaneous Approach (ICD-10-PCS; principal; 2022-09-30)
PROC: B548ZZA Ultrasonography of Superior Vena Cava, Guidance (ICD-10-PCS; 2022-09-30)
DX: A41.9 Sepsis, unspecified organism (principal); R65.21 Severe sepsis with septic shock; T78.2XXA Anaphylactic shock, unspecified, initial encounter; N12 Tubulo-interstitial nephritis, not specified as acute or chronic; E87.1 Hypo-osmolality and hyponatremia; I47.1 Supraventricular tachycardia; Z20.822 Contact with and (suspected) exposure to COVID-19; E03.9 Hypothyroidism, unspecified; M79.7 Fibromyalgia; E87.6 Hypokalemia; E83.51 Hypocalcemia; E83.42 Hypomagnesemia; Z88.5 Allergy status to narcotic agent
CPT/HCPCS: 36415; 71045; 80048; 81003; 83605; 83735; 84484; 85025; 86003; 87040; 87081; 93005; 96365; 96375; 99291; J0171; J1200; J1720; J1885; J2543; J2920; J2930; J3475; J3490; J7060; Q0092